=== PATIENT | male | born 1955 ===

== ENCOUNTER 2024-11-04 10:47 | Outpatient (AMB) | payer MEDICARE, SELFPAY ==
--- OUTSIDE RECORDS SUMMARY | 2024-03-17 05:30 | XMS_ITS ---
Author Organization [facility] [place] Address [address] [place] [address] Care Team Providers Care Machine Ironer Name Role Phone Migration, Provider Unavailable Unavailable REASON FOR VISIT CPX Encounters Encounter Location Date Provider Diagnosis [facility], [address] [address] 03/17/2024 Provider Migration Plan Of Treatment No Information Progress Notes * BARRY CALLEDOB: [birth year] (69 yo M)Acc No.[id number]:03/17/2024 Progress Notes Patient: Leonardo BARRY HOLMAN Provider: Robert Segovia :1955 A ge:68 Y S ex:Male Date:03/17/2024 Address:[place], [id number] Subjective: * Chief Complaints: * C PX * Ocular Surgical History: Objective: Vision Examination: * Electronic signature of Prov ider Migration on 11/04/2024 at 12:18 PM EDT Sign off status: Pending * Provider: Robert berg Migration Date: Generated for Niviai ng/Fatravisg/eTransmitting on: 0 11/04/2024 12:18 PM EDT
--- OUTSIDE RECORDS SUMMARY | 2024-11-04 12:19 | XMS_ITS | Clinical Summary ---
Author Organization [facility] [address] [facility] Address [address] [place] [address] Phone Care Team Providers Care Calender Feeder Name Role Phone Shoaib Clemens MD Primary Care Provider [phone] Allergies Active Allergy Reactions Criticality Noted Date Comments Rofecoxib 10/09/2017 Medications atorvastatin (LIPITOR) 20 mg tablet Take 1 Tablet by mouth daily. Active biotin 5 mg capsule Take by mouth. Activ e cholecalciferol (VITAMIN D-3) 50 mcg (2,000 unit) tablet Take by mouth. Ac tive EPINEPHrine (EpiPen 2-Clifton) 0.3 mg/0.3 mL injection Inject 0.3 mL as directed as needed. Active fexofenadine (SKYLER) 180 mg tablet Take 180 mg by mouth daily. Active mirabegron (MYRBETRIQ) 25 mg 24 hr tablet Take by mouth. Active glucosamine/msm /chondrt/C/hyal (GLUCOSAMINE-CH ONDROITIN-MSM ORAL) Misc Natural Products (Glucos-Chondro it-MSM Complex) Tab Sig - Route: Take by mouth daily. Active multivit-minera ls/folic acid (CENTRUM ADULTS ORAL) Take by mouth. Activ e mv-mn/om3/dha/e pa/fish/lut/saúl (OCUVITE ADULT 50 PLUS ORAL) Take by mouth. A ctive omega 9-xyb-nlu-fish oil (Fish OiL) 1,200 (144-216) mg capsule Take by mouth. Acti ve oxyBUTYnin XL (DITROPAN-XL) 10 mg 24 hr tablet Take 10 mg by mouth daily. Active coenzyme Q-10 (Co Q-10) 300 mg capsule capsule Take by mouth. Activ e cycloSPORINE (RESTASIS) 0.05 % ophthalmic emulsion Administer 1 drop into both eyes 2 (two) times a day. Active Active Problems Problem Noted Date Diagnosed Date Ventricular bigeminy 06/22/2021 Immunizations Name Administration Dates Next Due Pneumococcal polysaccharide 23 valent (Pneumovax 23) 2yo and older 01/21/2008 Tdap Tetanus diptheria acell ular pertussis (Boostrix; Adacel) 7yo and older 06/17/2009 Surgical History Surgery Date Site/Laterality Comments COLONOSCOPY 01/20/2014 PROCEDURE: HISTORICAL COLONOSCOPY PARTIAL HIP ARTHROPLASTY Left CATARACT EXTRACTION Right Medical History Medical History Date Comments History of herpes zoster 07/31/2017 DX:Hist ory of herpes zoster Allergic rhinitis 07/31/2017 DX:Allergic rh initis Obstructive sleep apnea syndrome 07/31/2016 DX:Obstructive sleep apnea syndrome Tubular adenoma 10/09/2017 DX:Tubular adeno ma; COMMENT: 11.4.14 History of retinal detachment 10/09/2017 DX :History of retinal detachment DJD (degenerative joint dise ase), cervical 10/09/2017 DX:DJD (degenerative joint d isease), cervical DJD (degenerative joint dise ase), lumbar 10/09/2017 DX:DJD (degenerative joint d isease), lumbar Rosacea 10/09/2017 DX:Rosacea BPH (benign prostatic hyperplasia) 10/09/2017 DX:BPH (benign prostatic hyperplasia) Chronic sinusitis DX:Chronic sin usitis Palpitations DX:Palpitations BPH (benign prostatic hyperplasia) Family History Medical History Relation Name Comments Heart failure Father Relation Name Status Comments Father Social History Tobacco Use Types Packs/Day Years Used Date Smoking Tobacco: Former Smokeless Tobacco: Never Alcohol Use Standard Drinks/Week Comments Yes 7 (1 standard drink = 0.6 oz pur e alcohol) Interpersonal Safety Answer Date Record ed Physical Abuse 04/15/2024 Verbal Abuse 04/15/2024 Sex and Gender Information Value Date Recorded Sex Assigned at Male 04/14/2024 10:59 AM EST Legal Sex Male 9:42 PM EST Gender Identity Male 04/14/2024 10:59 AM EST Sexual Orientation Straight 04/14/2024 10 :59 AM EST Obstetrics History Last Filed Vital Signs Vital Sign Reading Time Taken Comments Blood Pressure 120/71 04/15/2024 1:16 PM EST Pulse 54 04/15/2024 1:16 PM EST Temperature 36.1 C (97 F) 04/15/2024 12:56 PM EST Respiratory Rate 14 04/15/2024 1:16 PM EST Oxygen Saturation 100% 04/15/2024 1:16 PM EST Inhaled Oxygen Concentration - - Weight 95.3 kg (210 lb) 04/15/2024 11:35 AM EST Height 177.8 cm (5' 10 ) 04/15/2024 11:35 AM EST Body Mass Index 30.13 04/15/2024 11:35 AM EST Plan of Treatment Upcoming Encounters Date Type Department Care Team (Late st Contact Info) Description 04/10/2025 8:15 AM EST Office Visit Pulmonolgy - [facility] [place] [address] [place] [id number] Seda Costello MD [address] [place] [address] Health Maintenance Due Date Last Done Comments Zoster Vaccines (2 of 2) 12/28/2018 11/02/2018 DTaP,Tdap,and Td Vaccines (2 - Td or Tdap) 06/18/2019 06/17/2009 Abdominal Aortic Aneurysm (AAA) Screen 02/18/2022 Cholesterol Screening (Lipid Panel) 02/18/2022 Hepatitis C Screening 02/18/2022 Medicare Annual Wellness Visit 02/18/2022 Social Influencers of Health Screening 02/18/2022 Depression Screening 03/19/2024 COVID-19 Vaccine ( season) 2024 02/19/2024, 02/13/2023, 04/10/2022, Additional history exists Influenza Vaccine (#1) 2024 , 02/13/2023, 04/11/2022, Additional history exists Falls Risk Assessment 04/15/2025 04/15/2024 RSV Immunization Adult Patients (1 - 1-dose 75+ series) 2032 Colorectal Cancer Screening: Colonoscopy 04/15/2034 04/15/2024 Pneumococcal Vaccine: 50+ Years Completed 02/19/2024, 01/21/2008 HIB Vaccines Aged Out No longer eligi ble based on patient's age to complete this topic HPV Vaccines Aged Out No longer eligi ble based on patient's age to complete this topic Hepatitis A Vaccines Aged Out No long er eligible based on patient's age to complete this topic Hepatitis B Vaccines Aged Out No long er eligible based on patient's age to complete this topic IPV Vaccines Aged Out No longer eligi ble based on patient's age to complete this topic MMR Vaccines Aged Out No longer eligi ble based on patient's age to complete this topic Meningococcal ACWY Vaccine Aged Out N o longer eligible based on patient's age to complete this topic Meningococcal B Vaccine Aged Out No l onger eligible based on patient's age to complete this topic RSV Immunization Patients Under 20 months Aged Out No longer eligible based on patient's age to complete this topic Varicella Vaccines Aged Out No longer eligible based on patient's age to complete this topic Medical Devices Implanted Type [employer] Device Identifier Shelf Expiration Date Model / Serial / Lot Joints Hip Joints Hip Left: Hip Procedures Procedure Name Priority Date/Time Associated Diagnosis Comments COLONOSCOPY Routine 04/15/2024 12:55 PM EST Personal history of other colon polyps from Last 3 Months or Most Recently Relevant to Health Maintenance Results * COLONOSCOPY Anesthesia - MAC; [facility] ENDOSCOPY (04/15/2024 12:55 PM EST) Anatomical Region Laterality Modality Endoscopy 04/15/2024 12:3 0 PM EST Impressions 04/15/2024 12:57 PM EST - One 7 mm polyp in the ascending colon, removed with a cold snare. Resected and retrieved. - One 6 mm polyp in the transverse colon, removed with a cold snare. Resected and retrieved. - One 7 mm polyp in the sigmoid colon, removed with a cold snare. Resected and retrieved. - The examination was otherwise normal on direct and retroflexion views. Recommendation: - Await pathology results. - Repeat colonoscopy in 3 years for surveillance. Narrative 04/15/2024 12:57 PM EST [facility] GI Patient Name: Kamar Marsh Procedure Date: 04/15/2024 12:30 PM Date of : 1955 Age: 68 Room: ROOM 15 Gender: Male Note Status: Finalized Attending MD: Rod Alonso MD, Procedure Date No Time: 04/15/2024 Procedure: Colonoscopy Indications: High risk colon cancer surveillance: Personal history of colonic polyps Providers: Rod Alonso MD Referring MD: Rod Alonso MD Medicines: Propofol per Anesthesia Complications: No immediate complications. Estimated Blood Loss: Estimated blood loss was minimal. Procedure: Pre-Anesthesia Assessment: - ASA Grade Assessment: III - A patient with severe systemic disease. After I obtained informed consent, the scope was passed under direct vision. Throughout the procedure, the patient's blood pressure, pulse, and oxygen saturations were monitored continuously.The Olympus Colonoscope was introduced through the anus and advanced to the cecum, identified by appendiceal orifice and ileocecal valve. The colonoscopy was performed without difficulty. The patient tolerated the procedure well. The quality of the bowel preparation was good. Findings: The perianal and digital rectal examinations were normal. A 7 mm polyp was found in the ascending colon. The polyp was sessile. The polyp was removed with a cold snare. Resection and retrieval were complete. A 6 mm polyp was found in the transverse colon. The polyp was sessile. The polyp was removed with a cold snare. Resection and retrieval were complete. A 7 mm polyp was found in the sigmoid colon. The polyp was sessile. The polyp was removed with a cold snare. Resection and retrieval were complete. The exam was otherwise without abnormality on direct and retroflexion views. Procedure Code(s): --- Professional --- 50085, Colonoscopy, flexible; with removal of tumor(s), polyp(s), or other lesion(s) by snare technique Diagnosis Code(s): --- Professional --- Z86.010, Personal history of colonic polyps D12.2, Benign neoplasm of ascending colon D12.3, Benign neoplasm of transverse colon (hepatic flexure or splenic flexure) D12.5, Benign neoplasm of sigmoid colon CPT copyright 2020 [employer]. All rights reserved. The codes documented in this report are preliminary and upon abrasive wheel molder review may be revised to meet current compliance requirements. Rod Alonso MD 04/15/2024 12:57:13 PM This report has been signed electronically.Rod Alonso MD Number of Addenda: 0 Note Initiated On: 04/15/2024 12:30 PM Scope In: Scope Out: Endoscopy Department at [facility] - [address] [place] [id number] Procedure Note Rod Alonso MD - 04/15/2024 [facility] GI Patient Name: Kamar Marsh Procedure Date: 04/15/2024 12:30 PM Date of : 1955 Age: 68 Room: ROOM 15 Gender: Male Note Status: Finalized Attending MD: Rod Alonso MD, Procedure Date No Time: 04/15/2024 Procedure: Colonoscopy Indications: High risk colon cancer surveillance: Personalhistory of colonic polyps Providers: Rod Alonso MD Referring MD: Rod Alonso MD Medicines: Propofol per Anesthesia Complications: No immediate complications. Estimated Blood Loss: Estimated blood loss was minimal. Procedure: Pre-Anesthesia Assessment: - ASA Grade Assessment: III - A patient with severe systemic disease. After I obtained informed consent, the scope was passed under direct vision. Throughout theprocedure, the patient's blood pressure, pulse, and oxygen saturations were monitored continuously.The Olympus Colonoscope was introduced through the anus and advanced to the cecum, identified by appendiceal orifice and ileocecal valve. The colonoscopy was performed without difficulty. The patient tolerated the procedure well. The quality of the bowel preparation was good. Findings: The perianal and digital rectal examinations were normal. A 7 mm polyp was found in the ascending colon. The polyp was sessile. The polyp was removed with acold snare. Resection and retrieval were complete. A 6 mm polyp was found in the transverse colon. The polyp was sessile. The polyp was removed with acold snare. Resection and retrieval were complete. A 7 mm polyp was found in the sigmoid colon. Thepolyp was sessile. The polyp was removed with a coldsnare. Resection and retrieval were complete. The exam was otherwise without abnormality ondirect and retroflexion views. Procedure Code(s): --- Professional --- 22689, Colonoscopy, flexible; with removal of tumor(s), polyp(s), or other lesion(s) by snare technique Diagnosis Code(s): --- Professional --- Z86.010, Personal history of colonic polyps D12.2, Benign neoplasm of ascending colon D12.3, Benign neoplasm of transverse colon (hepatic flexure or splenic flexure) D12.5, Benign neoplasm of sigmoid colon CPT copyright 2020 [employer]. All rights reserved. The codes documented in this report are preliminary and upon abrasive wheel molder reviewmay be revised to meet current compliance requirements. Rod Alonso MD 04/15/2024 12:57:13 PM This report has been signed electronically.Rod Alonso MD Number of Addenda: 0 Note Initiated On: 04/15/2024 12:30 PM Scope In: Scope Out: Endoscopy Department at [facility] - [address] [place] [phone] IMPRESSION: - One 7 mm polyp in the ascending colon, removed with a cold snare. Resected and retrieved. - One 6 mm polyp in the transverse colon, removedwith a cold snare. Resected and retrieved. - One 7 mm polyp in the sigmoid colon, removed witha cold snare. Resected and retrieved. - The examination was otherwise normal on directand retroflexion views. Recommendation: - Await pathology results. - Repeat colonoscopy in 3 years for surveillance. Rod Alonso MD GI~PROCEDURE ORDERABLES Fin al Result from Last 3 Months or Most Recently Relevant to Health Maintenance Insurance [employer] Care Teams Calender Feeder Relationship Specialty Start Date End Date Shoaib Clemens MD [address] [place] [address] PCP - General Internal Medicine 04/15/24
--- OUTSIDE RECORDS SUMMARY | 2024-11-04 12:19 | XMS_ITS ---
Author Name [facility] Organization Unknown Care Team Organization Name Specialty Phone Email Start Date End Da te [facility] 10/04/2023 12/26/19 [facility] [place] 09/21/2022 12/26/19 24 [facility] 01/24/2022 11/05/19 24
--- OUTSIDE RECORDS SUMMARY | 2024-11-04 12:19 | XMS_ITS | Clinical Summary ---
Author Organization [facility] Address [address] [place] [address] Care Team Providers Care Business Process Lead Name Role Phone Pcp, No Primary Care Provider Unavailabl e Social History Tobacco Use Types Packs/Day Years Used Date Smoking Tobacco: Never Assessed Sex and Gender Information Value Date Recorded Sex Assigned at Not on file Legal Sex Male 2:09 PM EDT Gender Identity Not on file Sexual Orientation Not on file Plan of Treatment Health Maintenance Due Date Last Done Comments Hepatitis C Virus Screening 1955 DTaP/Tdap/Td Vaccines (1 - Tdap) 1976 Pneumococcal Vaccines 50+ (1 of 1 - PCV) 09/04/2007 Zoster (Shingles) Vaccine (1 of 2) 09/04/2007 COVID-19 Vaccine ( - 2023-2 5 season) 2023 RSV Vaccine 60 years and old er and Patients (1 - 1-dose 75+ series) 2032 Hepatitis B Vaccines Aged Out No long er eligible based on patient's age to complete this topic Care Teams Business Process Lead Relationship Specialty Start Date End Date Pcp, No PCP - General General Medicine 05/05/15
== END 2024-11-04 10:58 | disposition home or self-care (01) ==
LOC: HO.HMGAL 10:47
PROVIDERS: PCP Internal Medicine; Visit Provider Registered Nurse Emergency
DX: J30.89 Other allergic rhinitis (principal)
CPT/HCPCS: 95117; 95165

== ENCOUNTER 2024-11-19 10:42 | Outpatient (AMB) | payer MEDICARE, SELFPAY ==
--- OUTSIDE RECORDS SUMMARY | 2024-11-19 12:25 | XMS_ITS | Clinical Summary ---
Author Organization [facility] 299 [facility] Address [address] [place] [address] Phone Care Team Providers Care Stripper Soft Plastic Name Role Phone Shoaib Clemens MD Primary Care Provider +1 [phone] Allergies Active Allergy Reactions Criticality Noted Date Comments Rofecoxib 10/09/2017 Medications atorvastatin (LIPITOR) 20 mg tablet Take 1 Tablet by mouth daily. Active biotin 5 mg capsule Take by mouth. Activ e cholecalciferol (VITAMIN D-3) 50 mcg (2,000 unit) tablet Take by mouth. Ac tive EPINEPHrine (EpiPen 2-Clifton) 0.3 mg/0.3 mL injection Inject 0.3 mL as directed as needed. Active fexofenadine (SKYELR) 180 mg tablet Take 180 mg by [...] ORAL) Take by mouth. A ctive omega 1-ydz-dnm-fish oil (Fish OiL) 1,200 (144-216) mg capsule [...] 8:15 AM EST Office Visit Pulmonolgy - [address] [place] [address] Seda Costello MD [address] [place] [phone] Health Maintenance Due Date Last Done Comments [...] this topic Medical Devices Implanted Type Area Melt House Centrifugal Operator Device Identifier Shelf Expiration Date Model / Serial / Lot Joints Hip Joints Hip Left: Hip Procedures Procedure Name Priority Date/Time Associated Diagnosis Comments COLONOSCOPY Routine 04/15/2024 12:55 PM EST Personal history of other colon polyps from Last 3 Months or Most Recently Relevant to Health Maintenance Results * COLONOSCOPY Anesthesia - MAC; [facility] ENDOSCOPY (04/15/2024 12:55 PM EST) Anatomical Region [...] for surveillance. Narrative 04/15/2024 12:57 PM EST [facility] GI Patient Name: Kamar Marsh Procedure Date: [...] retroflexion views. Procedure Code(s): --- Professional --- 09912, Colonoscopy, flexible; with removal of tumor(s), polyp(s), or other lesion(s) by snare technique Diagnosis Code(s): --- Professional --- Z86.010, Personal history of colonic polyps D12.2, Benign neoplasm of ascending colon D12.3, Benign neoplasm of transverse colon (hepatic flexure or splenic flexure) D12.5, Benign neoplasm of sigmoid colon CPT copyright 2020 [employer]. All rights reserved. The codes documented in this report are preliminary and upon visual artist review may be revised to meet current compliance requirements. Rod Alonso MD 04/15/2024 12:57:13 PM This report has been signed electronically.Rod Alonso MD Number of Addenda: 0 Note Initiated On: 04/15/2024 12:30 PM Scope In: Scope Out: Endoscopy Department at [facility] - [address] [place] [phone] Procedure Note Rod Alonso MD - 04/15/2024 [facility] GI Patient Name: Kamar Marsh Procedure Date: [...] retroflexion views. Procedure Code(s): --- Professional --- 92479, Colonoscopy, flexible; with removal of tumor(s), polyp(s), or other lesion(s) by snare technique Diagnosis Code(s): --- Professional --- Z86.010, Personal history of colonic polyps D12.2, Benign neoplasm of ascending colon D12.3, Benign neoplasm of transverse colon (hepatic flexure or splenic flexure) D12.5, Benign neoplasm of sigmoid colon CPT copyright 2020 [employer]. All rights reserved. The codes documented in this report are preliminary and upon visual artist reviewmay be revised to meet current compliance requirements. Rod Alonso MD 04/15/2024 12:57:13 PM This report has been signed electronically.Rod Alonso MD Number of Addenda: 0 Note Initiated On: 04/15/2024 12:30 PM Scope In: Scope Out: Endoscopy Department at [facility] - [address] [place] [phone] IMPRESSION: - One 7 mm polyp in [...] [employer] [place] [employer] Care Teams Stripper Soft Plastic Relationship Specialty Start Date End Date Shoaib Clemens MD [facility] [address] PCP - General Internal Medicine 04/15/24
--- OUTSIDE RECORDS SUMMARY | 2024-11-19 12:25 | XMS_ITS | Clinical Summary ---
Author Organization [facility] Address [address] [place] [address] Care Team Providers Care Molded Frames Assembler Name Role Phone Pcp, No Primary Care Provider Unavailabl e Social History Tobacco Use Types Packs/Day Years Used Date Smoking Tobacco: Never Assessed Sex and Gender Information Value Date Recorded Sex Assigned at Not on file Legal Sex Male 2:09 PM EDT Gender Identity Not on file Sexual Orientation Not on file Plan of Treatment Health Maintenance Due Date Last Done Comments Advance Care Planning 1955 Hepatitis C Virus Screening 1955 DTaP/Tdap/Td Vaccines (1 - Tdap) 1976 Pneumococcal Vaccines 50+ (1 of 1 - PCV) 09/04/2007 Zoster (Shingles) Vaccine (1 of 2) 09/04/2007 COVID-19 Vaccine ( - 2023-2 5 season) 2024 RSV Vaccine 60 years and old er and Patients (1 - 1-dose 75+ series) 2032 Hepatitis B Vaccines Aged Out No long er eligible based on patient's age to complete this topic Care Teams Molded Frames Assembler Relationship Specialty Start Date End Date Pcp, No PCP - General General Medicine 05/05/15
== END 2024-11-19 10:48 | disposition home or self-care (01) ==
LOC: HO.HMGAL 10:42
PROVIDERS: PCP Internal Medicine; Visit Provider Registered Nurse Emergency
DX: J30.89 Other allergic rhinitis (principal)
CPT/HCPCS: 95117; 95165

== ENCOUNTER 2024-11-26 10:28 | Outpatient (AMB) | payer MEDICARE, SELFPAY ==
--- OUTSIDE RECORDS SUMMARY | 2024-03-17 05:30 | XMS_ITS ---
Author Organization [facility] [place] Address [address] [place] [address] Care Team Providers Care Touch Up Carver Name Role Phone Migration, Provider Unavailable Unavailable REASON FOR VISIT CPX Encounters Encounter Location Date Provider Diagnosis [facility], [address] [address] 03/17/2024 Provider Migration Plan Of Treatment No Information Progress Notes * BARRY CALLEDOB: [birth year] (69 yo M)Acc No.[id number]:03/17/2024 Progress Notes Patient: Leonardo BARRY HOLMAN Provider: Robert Segovia :1955 A ge:68 Y S ex:Male Date:03/17/2024 Address:[place], [id number] Subjective: * Chief Complaints: * C PX * Ocular Surgical History: Objective: Vision Examination: * Electronic signature of Prov ider Migration on 11/26/2024 at 12:43 PM EDT Sign off status: Pending * Provider: Robert berg Migration Date: Generated for Niviai ng/Fatravisg/eTransmitting on: 0 11/26/2024 12:43 PM EDT
--- OUTSIDE RECORDS SUMMARY | 2024-11-26 12:44 | XMS_ITS | Patient Health Record ---
Author Organization [facility] [place] [facility] [place] Address [address] [facility] 1 [place] [address] Care Team Providers Care Aircraft Pneudraulics Repairer Name Role Phone Migration, Provider Unavailable Unavailable Reason For Referral No Information Encounters Encounter Location Date Provider Diagnosis [facility], [address] [address] 03/17/2024 Provider Migration Plan Of Treatment No Information Insurance Providers Payer Name Payer Address Payer Phone Subscriber Number Group Number Insured Name Patient Relationship to Insured Coverage Start Date Coverage End Date [facility] [address] [place] [phone] [phone] [id number] BARRY SMITH Self - patient is the insured
--- OUTSIDE RECORDS SUMMARY | 2024-11-26 12:44 | XMS_ITS | Clinical Summary ---
Author Organization [facility] Address [address] [place] [address] Care Team Providers Care Clinical Staff Anesthesiologist Name Role Phone Pcp, No Primary Care [...] age to complete this topic Care Teams Clinical Staff Anesthesiologist Relationship Specialty Start Date End Date Pcp, No PCP - General General Medicine 05/05/15
== END 2024-11-26 10:53 | disposition home or self-care (01) ==
LOC: HO.HMGAL 10:28
PROVIDERS: PCP Internal Medicine; Visit Provider Registered Nurse Emergency
DX: J30.89 Other allergic rhinitis (principal)
CPT/HCPCS: 95117; 95165

== ENCOUNTER 2024-12-08 11:47 | Outpatient (AMB) | payer MEDICARE, SELFPAY ==
--- OUTSIDE RECORDS SUMMARY | 2024-03-17 05:30 | XMS_ITS ---
Author Organization [facility] [place] Address [address] [place] [address] Care Team Providers Care Instrument Inspector Name Role Phone Migration, Provider Unavailable Unavailable REASON FOR VISIT CPX Encounters Encounter Location Date Provider Diagnosis [facility], [address] [address] 03/17/2024 Provider Migration Plan Of Treatment No Information Progress Notes * BARRY CALLEDOB: [birth year] (69 yo M)Acc No.[id number]:03/17/2024 Progress Notes Patient: Leonardo BARRY HOLMAN Provider: Robert Segovia :1955 A ge:68 Y S ex:Male Date:03/17/2024 Address:[place], [id number] Subjective: * Chief Complaints: * C PX * Ocular Surgical History: Objective: Vision Examination: * Electronic signature of Prov ider Migration on 12/08/2024 at 02:29 PM EDT Sign off status: Pending * Provider: Robert berg Migration Date: Generated for Niviai ng/Fatravisg/eTransmitting on: 0 12/08/2024 02:29 PM EDT
--- OUTSIDE RECORDS SUMMARY | 2024-12-08 14:30 | XMS_ITS | Clinical Summary ---
Author Organization [facility] Address [address] [place] [address] Care Team Providers Care Piano Machine Operator Name Role Phone Pcp, No Primary Care [...] age to complete this topic Care Teams Piano Machine Operator Relationship Specialty Start Date End Date Pcp, No PCP - General General Medicine 05/05/15
--- OUTSIDE RECORDS SUMMARY | 2024-12-08 14:30 | XMS_ITS | Clinical Summary ---
Author Organization [facility] 299 [facility] Address [address] [place] [address] Phone Care Team Providers Care Skull Splitter Name Role Phone Shoaib Clemens MD Primary Care Provider [phone] [phone] Allergies Active Allergy Reactions Criticality Noted Date [...] ORAL) Take by mouth. A ctive omega 4-sdp-qeo-fish oil (Fish OiL) 1,200 (144-216) mg capsule [...] Description 04/10/2025 8:15 AM EST Office Visit Pulmonology - [place] [address] [facility] [address] [place] [phone] Seda Costello MD [address] [facility] [address] [place] [address] Health Maintenance Due Date Last Done Comments [...] this topic Medical Devices Implanted Type Area Property Claims Adjuster Device Identifier Shelf Expiration Date Model / Serial / Lot Joints Hip Joints Hip Left: Hip Procedures Procedure Name Priority Date/Time Associated Diagnosis Comments COLONOSCOPY Routine 04/15/2024 12:55 PM EST Personal history of other colon polyps from Last 3 Months or Most Recently Relevant to Health Maintenance Results * COLONOSCOPY Anesthesia - MAC; [facility] ENDOSCOPY (04/15/2024 12:55 PM EST) Anatomical [...] for surveillance. Narrative 04/15/2024 12:57 PM EST [facility] GI Patient Name: Kamar Marsh Procedure Date: 04/15/2024 12:30 PM Date of : 1955 Age: 68 Room: ROOM 15 Gender: Male Note Status: Finalized Attending MD: Rod Alonso MD, Procedure Date No Time: 04/15/2024 Procedure: Colonoscopy Indications: High risk colon cancer surveillance: Personal history of colonic polyps Providers: Rod Alonso MD Referring MD: oRd Alonso MD Medicines: Propofol per Anesthesia Complications: [...] retroflexion views. Procedure Code(s): --- Professional --- 16887, Colonoscopy, flexible; with removal of tumor(s), polyp(s), or other lesion(s) by snare technique Diagnosis Code(s): --- Professional --- Z86.010, Personal history of colonic polyps D12.2, Benign neoplasm of ascending colon D12.3, Benign neoplasm of transverse colon (hepatic flexure or splenic flexure) D12.5, Benign neoplasm of sigmoid colon CPT copyright 2020 [employer]. All rights reserved. The codes documented in this report are preliminary and upon truck hopper review may be revised to meet current compliance requirements. Rod Alonso MD 04/15/2024 12:57:13 PM This report has been signed electronically.Rod Alonso MD Number of Addenda: 0 Note Initiated On: 04/15/2024 12:30 PM Scope In: Scope Out: Endoscopy Department at [facility] - [address] [place] [phone] Procedure Note Rod Alonso MD - 04/15/2024 [facility] GI Patient Name: Kamar Marsh Procedure [...] retroflexion views. Procedure Code(s): --- Professional --- 53265, Colonoscopy, flexible; with removal of tumor(s), polyp(s), or other lesion(s) by snare technique Diagnosis Code(s): --- Professional --- Z86.010, Personal history of colonic polyps D12.2, Benign neoplasm of ascending colon D12.3, Benign neoplasm of transverse colon (hepatic flexure or splenic flexure) D12.5, Benign neoplasm of sigmoid colon CPT copyright 2020 [employer]. All rights reserved. The codes documented in this report are preliminary and upon truck hopper reviewmay be revised to meet current compliance requirements. Rod Alonso MD 04/15/2024 12:57:13 PM This report has been signed electronically.Rod Alonso MD Number of Addenda: 0 Note Initiated On: 04/15/2024 12:30 PM Scope In: Scope Out: Endoscopy Department at [facility] - [address] [place] [phone] IMPRESSION: - One 7 mm polyp in [...] [employer] [place] MED[employer] ADVANTAGE Care Teams Skull Splitter Relationship Specialty Start Date End Date Shoaib Clemens MD [address] [place] [address] PCP - General Internal Medicine 04/15/24
--- OUTSIDE RECORDS SUMMARY | 2024-12-08 14:31 | XMS_ITS | Patient Health Record ---
Author Organization [facility] [place] Address [address] [facility] 1 [place] [address] Care Team Providers Care Director Of Mobile Marketing Name Role Phone Migration, Provider Unavailable Unavailable Reason For Referral No Information Encounters Encounter Location Date Provider Diagnosis [facility], [address] [address] 03/17/2024 Provider Migration Plan Of Treatment No Information Insurance Providers Payer Name Payer Address Payer Phone Subscriber Number Group Number Insured Name Patient Relationship to Insured Coverage Start Date Coverage End Date [facility] [address] [facility] [address] [place] [phone] [id number] BARRY SMITH Self - patient is the insured
== END 2024-12-08 11:52 | disposition home or self-care (01) ==
LOC: HO.HMGAL 11:47
PROVIDERS: PCP Internal Medicine; Visit Provider Registered Nurse Emergency
DX: J30.89 Other allergic rhinitis (principal)
CPT/HCPCS: 95117; 95165

== ENCOUNTER 2024-12-24 11:56 | Outpatient (AMB) | payer MEDICARE, SELFPAY | END 2024-12-24 12:35 | disposition home or self-care (01) | LOC: HO.HMGAL 11:56 | PROVIDERS: PCP Internal Medicine; Visit Provider Registered Nurse Emergency | DX: J30.89 Other allergic rhinitis (principal) | CPT/HCPCS: 95117; 95165 ==

== ENCOUNTER 2024-12-31 13:53 | Outpatient (AMB) | payer MEDICARE, SELFPAY ==
--- OUTSIDE RECORDS SUMMARY | 2024-03-17 05:30 | XMS_ITS ---
Author Organization [facility] [place] Address [address] [place] [address] Care Team Providers Care Director Electrical Engineering Name Role Phone Migration, Provider Unavailable Unavailable REASON FOR VISIT CPX Encounters Encounter Location Date Provider Diagnosis [facility], [address] [address] 03/17/2024 Provider Migration Plan Of Treatment No Information Progress Notes * BARRY CALLEDOB: [birth year] (69 yo M)Acc No.[id number]:03/17/2024 Progress Notes Patient: Leonardo BARRY HOLMAN Provider: Robert Segovia :1955 A ge:68 Y S ex:Male Date:03/17/2024 Address:[place], [id number] Subjective: * Chief Complaints: * C PX * Ocular Surgical History: Objective: Vision Examination: * Electronic signature of Prov ider Migration on 12/31/2024 at 05:37 PM EDT Sign off status: Pending * Provider: Robert berg Migration Date: Generated for Niviai ng/Fatravisg/eTransmitting on: 05:37 PM EDT
--- OUTSIDE RECORDS SUMMARY | 2024-12-31 17:38 | XMS_ITS | Clinical Summary ---
Author Organization [facility] Address [address] [place] [address] Care Team Providers Care Petroleum Geologist Name Role Phone Pcp, No Primary Care [...] - 2023-2 5 season) 2024 RSV Vaccine 50 years and old er and Patients (1 - 1-dose 75+ series) 2032 Hepatitis B Vaccines Aged Out No long er eligible based on patient's age to complete this topic Care Teams Petroleum Geologist Relationship Specialty Start Date End Date Pcp, No PCP - General General Medicine 05/05/15
--- OUTSIDE RECORDS SUMMARY | 2024-12-31 17:38 | XMS_ITS | Patient Health Record ---
Author Organization [facility] [place] [facility] [place] Address [address] [facility] 1 [place] [address] Care Team Providers Care Insurance Underwriter Name Role Phone Migration, Provider Unavailable Unavailable Reason For Referral No Information Encounters Encounter Location Date Provider Diagnosis [facility], [address] [address] 03/17/2024 Provider Migration Plan Of Treatment No Information Insurance Providers Payer Name Payer Address Payer Phone Subscriber Number Group Number Insured Name Patient Relationship to Insured Coverage Start Date Coverage End Date [facility] [address] [facility] [address] [place] [phone] [id number] BARRY SMITH Self - patient is the insured
--- OUTSIDE RECORDS SUMMARY | 2024-12-31 17:38 | XMS_ITS | Clinical Summary ---
Author Organization [facility] 299 [facility] Address [address] [place] [address] Phone Care Team Providers Care Skiver Machine Name Role Phone Shoaib Clemens MD Primary Care Provider +1 [phone] Allergies Active Allergy Reactions Criticality Noted Date [...] ORAL) Take by mouth. A ctive omega 7-spw-cnb-fish oil (Fish OiL) 1,200 (144-216) mg capsule [...] Date Diagnosed Date Ventricular bigeminy 06/22/2021 Immunizations Immunization Administration Dates Next Due Pneumococcal polysaccharide 23 [...] Safety Answer Date Record ed Physical Abuse Unrecognized value 04/15/2024 Verbal Abuse Unrecognized value 04/15/2024 Sex and Gender Information Value Date [...] 8:15 AM EST Office Visit Pulmonology - [place] [address] [facility] [address] [place] [address] Seda Costello MD [address] [facility] [address] [place] [address] Health Maintenance Due Date Last Done Comments [...] this topic Medical Devices Implanted Type Area Aquatic Facility Manager Device Identifier Shelf Expiration Date Model / Serial / Lot Joints Hip Joints Hip Left: Hip Procedures Procedure Name Priority Date/Time Associated Diagnosis Comments COLONOSCOPY Routine 04/15/2024 12:55 PM EST Personal history of other colon polyps from Last 3 Months or Most Recently Relevant to Health Maintenance Results * COLONOSCOPY Anesthesia - MAC; [facility] ENDOSCOPY (04/15/2024 12:55 PM EST) Anatomical [...] for surveillance. Narrative 04/15/2024 12:57 PM EST [facility] GI Patient Name: Kamar Marsh Procedure [...] retroflexion views. Procedure Code(s): --- Professional --- 81082, Colonoscopy, flexible; with removal of tumor(s), polyp(s), or other lesion(s) by snare technique Diagnosis Code(s): --- Professional --- Z86.010, Personal history of colonic polyps D12.2, Benign neoplasm of ascending colon D12.3, Benign neoplasm of transverse colon (hepatic flexure or splenic flexure) D12.5, Benign neoplasm of sigmoid colon CPT copyright 2020 [employer]. All rights reserved. The codes documented in this report are preliminary and upon manager training and development review may be revised to meet current compliance requirements. Rod Alonso MD 04/15/2024 12:57:13 PM This report has been signed electronically.Rod Alonso MD Number of Addenda: 0 Note Initiated On: 04/15/2024 12:30 PM Scope In: Scope Out: Endoscopy Department at [facility] - [address] [place] [phone] Procedure Note Rod Alonso MD - 04/15/2024 [facility] GI Patient Name: Kamar Marsh Procedure [...] retroflexion views. Procedure Code(s): --- Professional --- 33452, Colonoscopy, flexible; with removal of tumor(s), polyp(s), or other lesion(s) by snare technique Diagnosis Code(s): --- Professional --- Z86.010, Personal history of colonic polyps D12.2, Benign neoplasm of ascending colon D12.3, Benign neoplasm of transverse colon (hepatic flexure or splenic flexure) D12.5, Benign neoplasm of sigmoid colon CPT copyright 2020 [employer]. All rights reserved. The codes documented in this report are preliminary and upon manager training and development reviewmay be revised to meet current compliance requirements. Rod Alonso MD 04/15/2024 12:57:13 PM This report has been signed electronically.Rod Alonso MD Number of Addenda: 0 Note Initiated On: 04/15/2024 12:30 PM Scope In: Scope Out: Endoscopy Department at [facility] - [address] [place] [phone] IMPRESSION: - One 7 mm polyp in [...] [employer] [place] MED[employer] ADVANTAGE Care Teams Skiver Machine Relationship Specialty Start Date End Date Shoaib Clemens MD [address] [place] [address] PCP - General Internal Medicine 04/15/24
== END 2024-12-31 13:58 | disposition home or self-care (01) ==
LOC: HO.HMGAL 13:53
PROVIDERS: PCP Internal Medicine; Visit Provider Registered Nurse Emergency
DX: J30.89 Other allergic rhinitis (principal)
CPT/HCPCS: 95117; 95165

== ENCOUNTER 2025-01-05 09:36 | Outpatient (AMB) | payer MEDICARE, SELFPAY ==
--- OUTSIDE RECORDS SUMMARY | 2024-03-17 05:30 | XMS_ITS ---
Author Organization [facility] [place] Address [address] [place] [address] Care Team Providers Care Haul Driver Name Role Phone Migration, Provider Unavailable Unavailable REASON FOR VISIT CPX Encounters Encounter Location Date Provider Diagnosis [facility], [address] [address] 03/17/2024 Provider Migration Plan Of Treatment No Information Progress Notes * BARRY CALLEDOB: [birth year] (69 yo M)Acc No.[id number]:03/17/2024 Progress Notes Patient: Leonardo BARRY HOLMAN Provider: Robert Segovia :1955 A ge:68 Y S ex:Male Date:03/17/2024 Address:[place], [id number] Subjective: * Chief Complaints: * C PX * Ocular Surgical History: Objective: Vision Examination: * Electronic signature of Prov ider Migration on 01/05/2025 at 10:47 AM EDT Sign off status: Pending * Provider: Robert berg Migration Date: Generated for Niviai ng/Candida/eTransmitting on: 10:47 AM EDT
--- OUTSIDE RECORDS SUMMARY | 2025-01-05 10:47 | XMS_ITS | Clinical Summary ---
Author Organization [facility] Address [address] [place] [address] Care Team Providers Care Commissioning Editor Name Role Phone Pcp, No Primary Care [...] age to complete this topic Care Teams Commissioning Editor Relationship Specialty Start Date End Date Pcp, No PCP - General General Medicine 05/05/15
--- OUTSIDE RECORDS SUMMARY | 2025-01-05 10:47 | XMS_ITS | Patient Health Record ---
Author Organization [facility] [place] Address [address] [facility] 1 [place] [address] Care Team Providers Care Mixer Crane Operator Name Role Phone Migration, Provider Unavailable Unavailable Reason For Referral No Information Encounters Encounter Location Date Provider Diagnosis [facility], [address] [address] 03/17/2024 Provider Migration Plan Of Treatment No Information Insurance Providers Payer Name Payer Address Payer Phone Subscriber Number Group Number Insured Name Patient Relationship to Insured Coverage Start Date Coverage End Date [facility] [address] [facility] [address] [place] [phone] [id number] BARRY SMITH Self - patient is the insured
--- OUTSIDE RECORDS SUMMARY | 2025-01-05 10:47 | XMS_ITS | Clinical Summary ---
Author Organization [facility] [address] [facility] Address [address] [place] [address] Phone Care Team Providers Care District Superintendent Name Role Phone Shoaib Clemens MD Primary Care Provider [phone] [phone] Allergies Active Allergy Reactions Criticality Noted Date [...] ORAL) Take by mouth. A ctive omega 9-mci-zyu-fish oil (Fish OiL) 1,200 (144-216) mg capsule [...] 8:15 AM EST Office Visit Pulmonology - [place] [address] [facility] [address] [place] [address] Seda Costello MD [address] [facility] [address] [place] [address] Health Maintenance Due Date Last Done Comments [...] this topic Medical Devices Implanted Type Area Forge Operator Helper Device Identifier Shelf Expiration Date Model / Serial / Lot Joints Hip Joints Hip Left: Hip Procedures Procedure Name Priority Date/Time Associated Diagnosis Comments COLONOSCOPY Routine 04/15/2024 12:55 PM EST Personal history of other colon polyps from Last 3 Months or Most Recently Relevant to Health Maintenance Results * COLONOSCOPY Anesthesia - MAC; [facility] ENDOSCOPY (04/15/2024 12:55 PM EST) Anatomical [...] for surveillance. Narrative 04/15/2024 12:57 PM EST [facility] GI Patient Name: Kamar Marsh Procedure [...] retroflexion views. Procedure Code(s): --- Professional --- 65305, Colonoscopy, flexible; with removal of tumor(s), polyp(s), or other lesion(s) by snare technique Diagnosis Code(s): --- Professional --- Z86.010, Personal history of colonic polyps D12.2, Benign neoplasm of ascending colon D12.3, Benign neoplasm of transverse colon (hepatic flexure or splenic flexure) D12.5, Benign neoplasm of sigmoid colon CPT copyright 2020 [employer]. All rights reserved. The codes documented in this report are preliminary and upon scraper tender review may be revised to meet current compliance requirements. Rod Alonso MD 04/15/2024 12:57:13 PM This report has been signed electronically.Rod Alonso MD Number of Addenda: 0 Note Initiated On: 04/15/2024 12:30 PM Scope In: Scope Out: Endoscopy Department at [facility] - [address] [place] [phone] Procedure Note Rod Alonso MD - 04/15/2024 [facility] GI Patient Name: Kamar Marsh Procedure [...] retroflexion views. Procedure Code(s): --- Professional --- 61919, Colonoscopy, flexible; with removal of tumor(s), polyp(s), or other lesion(s) by snare technique Diagnosis Code(s): --- Professional --- Z86.010, Personal history of colonic polyps D12.2, Benign neoplasm of ascending colon D12.3, Benign neoplasm of transverse colon (hepatic flexure or splenic flexure) D12.5, Benign neoplasm of sigmoid colon CPT copyright 2020 [employer]. All rights reserved. The codes documented in this report are preliminary and upon scraper tender reviewmay be revised to meet current compliance requirements. Rod Alonso MD 04/15/2024 12:57:13 PM This report has been signed electronically.Rod Alonso MD Number of Addenda: 0 Note Initiated On: 04/15/2024 12:30 PM Scope In: Scope Out: Endoscopy Department at [facility] - [address] [place] [phone] IMPRESSION: - One 7 mm polyp in [...] [employer] [place] MED[employer] ADVANTAGE Care Teams District Superintendent Relationship Specialty Start Date End Date Shoaib Clemens MD [address] [place] [address] PCP - General Internal Medicine 04/15/24
== END 2025-01-05 09:36 | disposition home or self-care (01) ==
LOC: HO.HMGAL 09:36
PROVIDERS: PCP Internal Medicine; Visit Provider Registered Nurse Emergency
DX: J30.89 Other allergic rhinitis (principal)
CPT/HCPCS: 95117; 95165

== ENCOUNTER 2025-01-12 11:41 | Outpatient (AMB) | payer MEDICARE, SELFPAY ==
--- OUTSIDE RECORDS SUMMARY | 2024-03-17 05:30 | XMS_ITS ---
Author Organization [facility] [place] Address [address] [place] [address] Care Team Providers Care Machine Woodworking Sander Name Role Phone Migration, Provider Unavailable Unavailable REASON FOR VISIT CPX Encounters Encounter Location Date Provider Diagnosis [facility], [address] [address] 03/17/2024 Provider Migration Plan Of Treatment No Information Progress Notes * BARRY CALLEDOB: [birth year] (69 yo M)Acc No.[id number]:03/17/2024 Progress Notes Patient: Leonardo BARRY HOLMAN Provider: Robert Segovia :1955 A ge:68 Y S ex:Male Date:03/17/2024 Address:[id number] Subjective: * Chief Complaints: * C PX * Ocular Surgical History: Objective: Vision Examination: * Electronic signature of Prov ider Migration on 01/12/2025 at 03:02 PM EDT Sign off status: Pending * Provider: Robert berg Migration Date: Generated for Robert leonard/Candida/eTransmitting on: 03:02 PM EDT
--- OUTSIDE RECORDS SUMMARY | 2025-01-12 15:03 | XMS_ITS | Clinical Summary ---
Author Organization [facility] Address [address] [place] [address] Care Team Providers Care Facetor Name Role Phone Pcp, No Primary Care [...] age to complete this topic Care Teams Facetor Relationship Specialty Start Date End Date Pcp, No PCP - General General Medicine 05/05/15
--- OUTSIDE RECORDS SUMMARY | 2025-01-12 15:03 | XMS_ITS | Patient Health Record ---
Author Organization [facility] [place] Address [address] [facility] [address] [place] [address] Care Team Providers Care Personal Care Assistant Name Role Phone Migration, Provider Unavailable Unavailable Reason For Referral No Information Encounters Encounter Location Date Provider Diagnosis [facility], [address] [address] 03/17/2024 Provider Migration Plan Of Treatment No Information Insurance Providers Payer Name Payer Address Payer Phone Subscriber Number Group Number Insured Name Patient Relationship to Insured Coverage Start Date Coverage End Date [facility] [address] [facility] [address] [place] [phone] [phone] [id number] BARRY SMITH Self - patient is the insured
--- OUTSIDE RECORDS SUMMARY | 2025-01-12 15:03 | XMS_ITS | Clinical Summary ---
Author Organization [facility] 299 [facility] Address [address] [place] [address] Phone Care Team Providers Care Strip Presser Name Role Phone Shoaib Clemens MD Primary Care Provider +1 [phone] Allergies Active Allergy Reactions Criticality Noted Date [...] ORAL) Take by mouth. A ctive omega 7-kzq-csc-fish oil (Fish OiL) 1,200 (144-216) mg capsule [...] 8:15 AM EST Office Visit Pulmonology - [address] [place] [phone] Seda Costello MD [address] [place] [phone] Health Maintenance Due Date Last Done Comments [...] this topic Medical Devices Implanted Type Area Earthmoving Plant Operator Device Identifier Shelf Expiration Date Model / Serial / Lot Joints Hip Joints Hip Left: Hip Procedures Procedure Name Priority Date/Time Associated Diagnosis Comments COLONOSCOPY Routine 04/15/2024 12:55 PM EST Personal history of other colon polyps from Last 3 Months or Most Recently Relevant to Health Maintenance Results * COLONOSCOPY Anesthesia - MAC; [facility] ENDOSCOPY (04/15/2024 12:55 PM EST) [...] for surveillance. Narrative 04/15/2024 12:57 PM EST [facility] GI Patient Name: Kamar Marsh Procedure Date: 04/15/2024 12:30 PM Date of : 1955 Age: 68 Room: ROOM 15 Gender: Male Note Status: Finalized Attending MD: Rod Alonso MD, Procedure Date No Time: 04/15/2024 Procedure: Colonoscopy Indications: High risk colon cancer surveillance: Personal history of colonic polyps Providers: Rod Alonso MD Referring MD: Rod Aolnso MD Medicines: Propofol per Anesthesia Complications: No [...] retroflexion views. Procedure Code(s): --- Professional --- 65769, Colonoscopy, flexible; with removal of tumor(s), polyp(s), or other lesion(s) by snare technique Diagnosis Code(s): --- Professional --- Z86.010, Personal history of colonic polyps D12.2, Benign neoplasm of ascending colon D12.3, Benign neoplasm of transverse colon (hepatic flexure or splenic flexure) D12.5, Benign neoplasm of sigmoid colon CPT copyright 2020 [employer]. All rights reserved. The codes documented in this report are preliminary and upon surgical coder review may be revised to meet current compliance requirements. Rod Alonso MD 04/15/2024 12:57:13 PM This report has been signed electronically.Rod Alonso MD Number of Addenda: 0 Note Initiated On: 04/15/2024 12:30 PM Scope In: Scope Out: Endoscopy Department at [facility] - [address] [place] [phone] Procedure Note Rod Alonso MD - 04/15/2024 [facility] GI Patient Name: Kamar Marsh Procedure Date: [...] retroflexion views. Procedure Code(s): --- Professional --- 59611, Colonoscopy, flexible; with removal of tumor(s), polyp(s), or other lesion(s) by snare technique Diagnosis Code(s): --- Professional --- Z86.010, Personal history of colonic polyps D12.2, Benign neoplasm of ascending colon D12.3, Benign neoplasm of transverse colon (hepatic flexure or splenic flexure) D12.5, Benign neoplasm of sigmoid colon CPT copyright 2020 [employer]. All rights reserved. The codes documented in this report are preliminary and upon surgical coder reviewmay be revised to meet current compliance requirements. Rod Alonso MD 04/15/2024 12:57:13 PM This report has been signed electronically.Rod Alonso MD Number of Addenda: 0 Note Initiated On: 04/15/2024 12:30 PM Scope In: Scope Out: Endoscopy Department at [facility] - [address] [place] [phone] IMPRESSION: - One 7 mm polyp in [...] [employer] Care Teams Strip Presser Relationship Specialty Start Date End Date Shoaib Clemens MD [address] [place] [address] PCP - General Internal Medicine 04/15/24
== END 2025-01-12 11:41 | disposition home or self-care (01) ==
LOC: HO.HMGAL 11:41
PROVIDERS: PCP Internal Medicine; Visit Provider Registered Nurse Emergency
DX: J30.89 Other allergic rhinitis (principal)
CPT/HCPCS: 95117; 95165

== ENCOUNTER 2025-02-04 09:54 | Outpatient (AMB) | payer MEDICARE, SELFPAY ==
--- OUTSIDE RECORDS SUMMARY | 2025-02-04 18:31 | XMS_ITS | Clinical Summary ---
Author Organization [facility] 299 [facility] Address [address] [place] [address] Phone Care Team Providers Care Machinist Mechanic Name Role Phone Shoaib Clemens MD Primary Care Provider [phone] [phone] Allergies Active Allergy Reactions Criticality Noted Date [...] ORAL) Take by mouth. A ctive omega 3-zww-pew-fish oil (Fish OiL) 1,200 (144-216) mg capsule [...] AM EST Office Visit Pulmonology - [address] [place] [phone] Seda Costello MD [address] [place] [phone] Health Maintenance Due Date Last Done [...] this topic Medical Devices Implanted Type Area Sprayer Hand Device Identifier Shelf Expiration Date Model / Serial / Lot Joints Hip Joints Hip Left: Hip Procedures Procedure Name Priority Date/Time Associated Diagnosis Comments COLONOSCOPY Routine 04/15/2024 12:55 PM EST Personal history of other colon polyps from Last 3 Months or Most Recently Relevant to Health Maintenance Results * COLONOSCOPY Anesthesia - MAC; [facility] ENDOSCOPY (04/15/2024 12:55 PM [...] retroflexion views. Procedure Code(s): --- Professional --- 21268, Colonoscopy, flexible; with removal of tumor(s), polyp(s), or other lesion(s) by snare technique Diagnosis Code(s): --- Professional --- Z86.010, Personal history of colonic polyps D12.2, Benign neoplasm of ascending colon D12.3, Benign neoplasm of transverse colon (hepatic flexure or splenic flexure) D12.5, Benign neoplasm of sigmoid colon CPT copyright 2020 [employer]. All rights reserved. The codes documented in this report are preliminary and upon safety tech review may be revised to meet current compliance requirements. Rod Alonso MD 04/15/2024 12:57:13 PM This report has been signed electronically.Rod Alonso MD Number of Addenda: 0 Note Initiated On: 04/15/2024 12:30 PM Scope In: Scope Out: Endoscopy Department at [facility] - [address] [place] [phone] Procedure Note Rod Alonso MD - 04/15/2024 [...] retroflexion views. Procedure Code(s): --- Professional --- 99033, Colonoscopy, flexible; with removal of tumor(s), polyp(s), or other lesion(s) by snare technique Diagnosis Code(s): --- Professional --- Z86.010, Personal history of colonic polyps D12.2, Benign neoplasm of ascending colon D12.3, Benign neoplasm of transverse colon (hepatic flexure or splenic flexure) D12.5, Benign neoplasm of sigmoid colon CPT copyright 2020 [employer]. All rights reserved. The codes documented in this report are preliminary and upon safety tech reviewmay be revised to meet current compliance requirements. Rod Alonso MD 04/15/2024 12:57:13 PM This report has been signed electronically.Rod Alonso MD Number of Addenda: 0 Note Initiated On: 04/15/2024 12:30 PM Scope In: Scope Out: Endoscopy Department at [facility] - [address] [place] [phone] IMPRESSION: - One 7 mm polyp in [...] [employer] Care Teams Machinist Mechanic Relationship Specialty Start Date End Date Shoaib Clemens MD [address] [place] [address] PCP - General Internal Medicine 04/15/24
== END 2025-02-04 09:55 | disposition home or self-care (01) ==
LOC: HO.HMGAL 09:54
PROVIDERS: PCP Internal Medicine; Visit Provider Registered Nurse Emergency
DX: J30.89 Other allergic rhinitis (principal)
CPT/HCPCS: 95117; 95165

== ENCOUNTER 2025-02-11 13:32 | Outpatient (AMB) | payer MEDICARE, SELFPAY ==
--- OUTSIDE RECORDS SUMMARY | 2025-02-11 16:39 | XMS_ITS | Clinical Summary ---
Author Organization [facility] [address] [facility] Address [address] [place] [address] Phone Care Team Providers Care Color Checker Roving Or Yarn Name Role Phone Shoaib Clemens MD Primary Care Provider [phone] [phone] Allergies Active Allergy Reactions Criticality Noted Date [...] ORAL) Take by mouth. A ctive omega 6-ihk-txq-fish oil (Fish OiL) 1,200 (144-216) mg capsule [...] 8:15 AM EST Office Visit Pulmonology - [address] [place] [phone] Seda Costello MD [address] [place] [phone] Health Maintenance Due Date Last Done [...] this topic Medical Devices Implanted Type Area Waterproof Material Folder Device Identifier Shelf Expiration Date Model / Serial / Lot Joints Hip Joints Hip Left: Hip Procedures Procedure Name Priority Date/Time Associated Diagnosis Comments COLONOSCOPY Routine 04/15/2024 12:55 PM EST Personal history of other colon polyps from Last 3 Months or Most Recently Relevant to Health Maintenance Results * COLONOSCOPY Anesthesia - MAC; [facility] ENDOSCOPY (04/15/2024 12:55 PM EST) [...] for surveillance. Narrative 04/15/2024 12:57 PM EST [facility] GI Patient Name: Kamar Marsh Procedure [...] retroflexion views. Procedure Code(s): --- Professional --- 85346, Colonoscopy, flexible; with removal of tumor(s), polyp(s), or other lesion(s) by snare technique Diagnosis Code(s): --- Professional --- Z86.010, Personal history of colonic polyps D12.2, Benign neoplasm of ascending colon D12.3, Benign neoplasm of transverse colon (hepatic flexure or splenic flexure) D12.5, Benign neoplasm of sigmoid colon CPT copyright 2020 [employer]. All rights reserved. The codes documented in this report are preliminary and upon security ambassador review may be revised to meet current compliance requirements. Rod Alonso MD 04/15/2024 12:57:13 PM This report has been signed electronically.Rod Alonso MD Number of Addenda: 0 Note Initiated On: 04/15/2024 12:30 PM Scope In: Scope Out: Endoscopy Department at [facility] - [address] [place] [phone] Procedure Note Rod Alonso MD - 04/15/2024 [facility] GI Patient Name: Kamar Marsh Procedure [...] retroflexion views. Procedure Code(s): --- Professional --- 15901, Colonoscopy, flexible; with removal of tumor(s), polyp(s), or other lesion(s) by snare technique Diagnosis Code(s): --- Professional --- Z86.010, Personal history of colonic polyps D12.2, Benign neoplasm of ascending colon D12.3, Benign neoplasm of transverse colon (hepatic flexure or splenic flexure) D12.5, Benign neoplasm of sigmoid colon CPT copyright 2020 [employer]. All rights reserved. The codes documented in this report are preliminary and upon security ambassador reviewmay be revised to meet current compliance requirements. Rod Alonso MD 04/15/2024 12:57:13 PM This report has been signed electronically.Rod Alonso MD Number of Addenda: 0 Note Initiated On: 04/15/2024 12:30 PM Scope In: Scope Out: Endoscopy Department at [facility] - [address] [place] [phone] IMPRESSION: - One 7 mm polyp in [...] [employer] Care Teams Color Checker Roving Or Yarn Relationship Specialty Start Date End Date Shoaib Clemens MD [address] [place] [address] PCP - General Internal Medicine 04/15/24
== END 2025-02-11 13:33 | disposition home or self-care (01) ==
LOC: HO.HMGAL 13:32
PROVIDERS: PCP Internal Medicine; Visit Provider Registered Nurse Emergency
DX: J30.89 Other allergic rhinitis (principal)
CPT/HCPCS: 95117; 95165

== ENCOUNTER 2025-02-23 11:39 | Outpatient (AMB) | payer MEDICARE, SELFPAY | END 2025-02-23 11:40 | disposition home or self-care (01) | LOC: HO.HMGAL 11:39 | PROVIDERS: PCP Internal Medicine; Visit Provider Registered Nurse Emergency | DX: J30.89 Other allergic rhinitis (principal) | CPT/HCPCS: 95117; 95165 ==

== ENCOUNTER 2025-03-02 09:31 | Outpatient (AMB) | payer MEDICARE, SELFPAY | END 2025-03-02 09:31 | disposition home or self-care (01) | LOC: HO.HMGAL 09:31 | PROVIDERS: PCP Internal Medicine; Visit Provider Registered Nurse Emergency | DX: J30.89 Other allergic rhinitis (principal) | CPT/HCPCS: 95117; 95165 ==

== ENCOUNTER 2025-03-09 10:45 | Outpatient (AMB) | payer MEDICARE, SELFPAY ==
--- OUTSIDE RECORDS SUMMARY | 2024-03-17 04:30 | XMS_ITS ---
Author Organization [facility] [place] Address [address] [place] [address] Care Team Providers Care Dental Hygienist Name Role Phone Migration, Provider Unavailable Unavailable REASON FOR VISIT CPX Encounters Encounter Location Date Provider Diagnosis [facility], [address] [address] 03/17/2024 Provider Migration Plan Of Treatment No Information Progress Notes * BARRY CALLEDOB: [birth year] (69 yo M)Acc No.[id number]:03/17/2024 Progress Notes Patient: Leonardo BARRY HOLMAN Provider: Robert Segovia :1955 A ge:68 Y S ex:Male Date:03/17/2024 Address:[place], [id number] Subjective: * Chief Complaints: * C PX * Ocular Surgical History: Objective: Vision Examination: * Electronic signature of Prov ider Migration on 03/09/2025 at 01:19 PM EST Sign off status: Pending * Provider: Robert berg Migration Date: Generated for Robert leonard/Candida/eTransmitting on: 05/10/2024 01:19 PM EST
--- OUTSIDE RECORDS SUMMARY | 2025-03-09 13:19 | XMS_ITS | Patient Health Record ---
Author Organization [facility] Address [address] [place] [address] Care Team Providers Care Policyholder Information Clerk Name Role Phone FANTASMA CISSE MD Primary Care Provider Unavailab MICKY Quick Unavailable [phone] Reason For Referral No Information Medications Medication SIG (Take, Route, Frequency, Duration) Notes Start Date End Date Status Golytely - POWDER FOR RECONSTITUTION 240 ML ORALLY EVERY 15 MINUTES; Duration: 16 DOSE(S) NAME ONLY Conversion from Multum Review and pick correct strength-formulat ion from Nexx [place] options. If intended option is not shown, discontinue and re-order from Quick Search. Active Co Q-10 100 MG Capsule 1 cap(s) orally once a day Active Vitamin D3 10 MCG (400 UNIT) Tablet 1 tab(s) orally once a day Active oxyBUTYnin Chloride ER 10 MG Tablet Extended Release 24 Hour 1 tab(s) orally once a day Active Aleve 220 MG Tablet 1 tab(s) orally every 8 hours/prn Not-Taking CPAP RESMED AIRSENSE 10 AUTO 4-18 CM DX NERISSA QHS *Please review for potential replacement for e-prescription and drug interaction check* 04/14/2015 Active Centrum Silver - Tablet 1 tab(s) orally once a day; Duration: 30 day(s) Active Glucosamine Sulfate 1000 MG Capsule 1 cap(s) orally once a day Active Fish Oil TABLET 1 TAB(S) ORALLY QD NAME ONLY Conversion from Multum Review and pick correct strength-formulat ion from Nexx [place] options. If intended option is not shown, discontinue and re-order from Quick Search. Active Restasis 0.05 % Emulsion 1 gtt in each affected eye every 12 hours Active OCCUVITE *Please review for potential replacement for e-prescription and drug interaction check* Active CPAP SUPPLIES DX/NERISSA MASK, HOSE,FILTER,HEADGEAR, CIRCUIT DIRECTED QHS; Duration: LIFETIME *Please review for potential replacement for e-prescription and drug interaction check* 04/15/2015 Active Fexofenadine HCl 180 MG Tablet 1 tab(s) orally once a day; Duration: 30 day(s) bailey- [employer] brand Active Biotin 1000 MCG Tablet 1 tab(s) orally once a day Active Social History Tobacco Use: Social History Observation Description Date Details (start date - stop date) Former Smoker NA - NA Social History Tobacco Use: Social Info Question Answer Notes Smoking Are you a: former smoker How long has it been since you last smoked? 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: no alcohol use: yes 5 drinks per wk drug use: no Hobbies/Exercise habits: golf, r kian stationary bike, light weights, 3x wkly Coffee/Tea/Soda: yes Coffee, 3 cups per day, tea 1 cup at night Marital Status experience no Living with smokers in household no Section Notes: occassionally smokes cigars occassionally smokes cigars occassionally smokes cigars occassionally smokes cigars Problems Problem Type SNOMED Code ICD Code Onset Dates Problem Status W/U Status Risk Notes Problem Benign neoplasm of colon (66591780) H/o colon adenoma (211.3) Active confirmed Problem Sleep apnea (37830136) Sleep apnea (G47.30) Active confirmed Problem History of polyp of colon (situation) (972840719) Personal history of colonic polyps (Z86.010) Active confirmed Plan Of Treatment No Information Insurance Providers Payer Name Payer Address Payer Phone Subscriber Number Group Number Insured Name Patient Relationship to Insured Coverage Start Date Coverage End Date [employer] [facility] [address] [place] [address] [id number] BARRY CALLE Self - patient is the insured Medical (General) History Medical History History ICD Code allergies (seasonal) Arthritis mononucleosis pleurisy Shingles Colonoscopy 12/02/2008 - Pat h: Tubular adenoma, likely excised, in the L colon Colonoscopy 01/20/2014 One 8m m polyp in ascending colon. Otherwise normal colon. Recall 5 years. Path: Tubular adenoma in the R colon shingles left eye Colonoscopy 01/22/2019 - Surgical History Surgery Date(Month/Year) Right detached Retina Right cataract implant 2010
--- OUTSIDE RECORDS SUMMARY | 2025-03-09 13:19 | XMS_ITS | Patient Health Record ---
Author Organization [facility] [place] Address [address] [facility] [address] [place] [address] Care Team Providers Care Life Skills Coordinator Name Role Phone Migration, Provider Unavailable Unavailable Reason For Referral No Information Encounters Encounter Location Date Provider Diagnosis Lt[place], Located Within [facility], [address] [phone] 03/17/2024 Provider Migration Plan Of Treatment No Information Insurance Providers Payer Name Payer Address Payer Phone Subscriber Number Group Number Insured Name Patient Relationship to Insured Coverage Start Date Coverage End Date [facility] [address] [place] [phone] [id number] BARRY SMITH Self - patient is the insured
--- OUTSIDE RECORDS SUMMARY | 2025-03-09 13:19 | XMS_ITS | Clinical Summary ---
Author Organization [facility] 299 [facility] Address [address] [place] [address] Phone Care Team Providers Care Customer Logistics Manager Name Role Phone Shoaib Clemens MD Primary Care Provider +1 -[phone] Allergies Active Allergy Reactions Criticality Noted Date [...] ORAL) Take by mouth. A ctive omega 1-zwb-xhr-fish oil (Fish OiL) 1,200 (144-216) mg capsule [...] Orientation Straight 04/14/2024 10 :59 AM EST Last Filed Vital Signs Vital Sign Reading [...] 8:15 AM EST Office Visit Pulmonology - [address] [place] [phone] Seda Costello MD [address] [place] [phone] Health Maintenance Due Date Last Done [...] this topic Medical Devices Implanted Type Area Driver Courier Device Identifier Shelf Expiration Date Model / Serial / Lot Joints Hip Joints Hip Left: Hip Procedures Procedure Name Priority Date/Time Associated Diagnosis Comments COLONOSCOPY Routine 04/15/2024 12:55 PM EST Personal history of other colon polyps from Last 3 Months or Most Recently Relevant to Health Maintenance Results * COLONOSCOPY Anesthesia - MAC; [facility] ENDOSCOPY (04/15/2024 12:55 PM EST) [...] for surveillance. Narrative 04/15/2024 12:57 PM EST GI Patient Name: Kamar Marsh Procedure Date: [...] retroflexion views. Procedure Code(s): --- Professional --- 56724, Colonoscopy, flexible; with removal of tumor(s), polyp(s), [...] in this report are preliminary and upon gang supervisor pipe lines review may be revised to meet current compliance requirements. Rod Alonso MD 04/15/2024 12:57:13 PM This report has been signed electronically.Rod Alonso MD Number of Addenda: 0 Note Initiated On: 04/15/2024 12:30 PM Scope In: Scope Out: Endoscopy Department at - [address] [place] [phone] Procedure Note Rod Alonso MD - 04/15/2024 GI Patient Name: Kamar Marsh Procedure Date: [...] retroflexion views. Procedure Code(s): --- Professional --- 27342, Colonoscopy, flexible; with removal of tumor(s), polyp(s), [...] in this report are preliminary and upon gang supervisor pipe lines reviewmay be revised to meet current compliance requirements. Rod Alonso MD 04/15/2024 12:57:13 PM This report has been signed electronically.Rod Alonso MD Number of Addenda: 0 Note Initiated On: 04/15/2024 12:30 PM Scope In: Scope Out: Endoscopy Department at - [address] [place] [phone] IMPRESSION: - One 7 mm polyp in [...] [employer] [employer] Care Teams Customer Logistics Manager Relationship Specialty Start Date End Date Shoaib Clemens MD [address] [place] [address] PCP - General Internal Medicine 04/15/24
== END 2025-03-09 10:46 | disposition home or self-care (01) ==
LOC: HO.HMGAL 10:45
PROVIDERS: PCP Internal Medicine; Visit Provider Registered Nurse Emergency
DX: J30.89 Other allergic rhinitis (principal)
CPT/HCPCS: 95117; 95165